=== PATIENT | female | born 1980 | race Caucasian/White ===

== ENCOUNTER 2018-12-15 14:21 | Day surgery (SDC) | payer OTHER ==
[~2018-12-15 14:21] MED LIST: CEFAZOLIN 2 GM/50 ML (PMX) 50 ML (FOR WT < 120 KG) IVPB; LACTATED RINGER'S 1,000 ML IV; SOD CHLORIDE 0.9% 1,000 ML IV
[2018-12-15 15:30] LABS: WHITE BLOOD COUNT 8.4 10^3/ul (4.8-10.8)
[2018-12-15 15:30] LABS: ADD MAN DIFF? NO; BASOPHILS % 0.1 % (0.0-2.0); EOSINOPHILS % 0.5 % (0.0-7.0); HEMATOCRIT 35.2 % (37.0-47.0); HEMOGLOBIN 11.7 g/dl (12.0-16.0); LYMPHOCYTES # 1.6 10^3/ul (0.8-2.9); LYMPHOCYTES % 18.8 % (15.0-51.0); MEAN CORPUSCULAR HEMOGLOBIN 30.5 pg (29.0-33.0); MEAN CORPUSCULAR HGB CONC 33.2 g/dl (32.0-37.0); MEAN CORPUSCULAR VOLUME 91.9 fl (82.0-101.0); MEAN PLATELET VOLUME 11.1 fl (7.4-10.4); MONOCYTE # 0.6 10^3/ul (0.3-0.9); MONOCYTES % 7.1 % (0.0-11.0); NEUTROPHIL # 6.1 10^3/ul (1.6-7.5); NEUTROPHILS % 73.1 % (39.0-77.0); PLATELET COUNT 336 10^3/UL (140-415); RED BLOOD COUNT 3.83 10^6/ul (4.20-5.40); RED CELL DISTRIBUTION WIDTH 13.2 % (11.5-14.5)
[2018-12-15 15:49] LABS: PROTIME 12.3 Sec (11.9-14.9)
[2018-12-15 15:50] LABS: PARTIAL THROMBOPLASTIN TIME 32.2 Sec (23.0-35.0)
[2018-12-15] MEDS ORDERED: PROPOFOL 20 ML (16:12)
[2018-12-15] MEDS ORDERED: CEFAZOLIN 1 GM INJ (16:12)
[2018-12-15] MEDS ORDERED: FENTAnyl 50 MCG/ML VIAL ×2 (16:13→17:42)
[2018-12-15] MEDS ORDERED: MIDAZOLAM 1 MG/ML 2 ML INJ (16:13)
[2018-12-15] MEDS ORDERED: LABETALOL HCL 20MG INJ IV (16:30)
[2018-12-15] MEDS ORDERED: hydrALAzine 20 MG INJ IV (16:30)
[2018-12-15] MEDS ORDERED: OXYCODONE/ACETAMINOPHEN (5/325) TAB PO (16:30)
[2018-12-15] MEDS ORDERED: HYDROmorphONE 1 MG/5 ML IV SYRINGE IV ×3 (16:30)
[2018-12-15] MEDS ORDERED: DIPHENHYDRAMINE 50 MG INJ IV (16:30)
[2018-12-15] MEDS ORDERED: FENTAnyl 50 MCG/ML VIAL IV ×3 (16:30)
[2018-12-15] MEDS ORDERED: METOCLOPRAMIDE 10 MG INJ IV (16:30)
[2018-12-15] MEDS ORDERED: EPHEDrine SULFATE 50 MG/5 ML SYG IV (16:30)
[2018-12-15] MEDS ORDERED: ONDANSETRON 4 MG INJ IV (16:30)
[2018-12-15] MEDS ORDERED: MEPERIDINE 25 MG INJ IV (16:30)
[2018-12-15] MEDS ORDERED: DEXAMETHASONE 4 MG/ML 5 ML INJ (16:53)
[2018-12-15] MEDS ORDERED: ONDANSETRON 4 MG INJ (16:53)
[2018-12-15] MEDS ORDERED: METOCLOPRAMIDE 10 MG INJ (16:53)
[2018-12-15] MEDS ORDERED: KETOROLAC 30 MG INJ (16:53)
[2018-12-15] MEDS ORDERED: KETOROLAC 30 MG INJ IM (17:39)
[2018-12-15] MEDS ORDERED: DOXYCYCLINE 100 MG TAB PO (18:00)
== END 2018-12-15 19:21 | disposition home or self-care (01) ==
LOC: SDS 14:21
DX: N93.9 Abnormal uterine and vaginal bleeding, unspecified (principal)
CPT/HCPCS: 58558; 85025; 85610; 85730; 88305